=== PATIENT | female | born 1970 | race Caucasian/White ===

== ENCOUNTER → 2020-04-29 | Outpatient (CLI) | payer OTHER ==
[~2020-04-29] MED LIST: HYDROCODON-ACE1 EAC4 PO
[2020-04-29 15:46] LABS: BUN/CREATININE RATIO 14 (0-10)
== END ==
LOC: LAB 14:40
PROVIDERS: Colon & Rectal Surgery
DX: K60.1 Chronic anal fissure (principal)
CPT/HCPCS: 36415; 80048; 93005

== ENCOUNTER 2020-07-02 18:36 | Emergency (ER) | payer OTHER ==
[2020-07-02] MEDS ORDERED: HYDROCODON-ACE1 EAC4 PO (20:19)
== END 2020-07-02 20:34 | disposition home or self-care (01) ==
LOC: ER1 18:36
DX: S86.912A Strain of unspecified muscle(s) and tendon(s) at lower leg level, left leg, initial encounter (principal); X58.XXXA Exposure to other specified factors, initial encounter
CPT/HCPCS: 73564; 85379; 99283

== ENCOUNTER → 2020-10-04 | Outpatient (CLI) | payer OTHER ==
[2020-10-04 12:21] LABS: HEMOGLOBIN 14.1 gm/dl (12.3-15.3); RED BLOOD COUNT 4.56 M/UL (4.00-5.10); WHITE BLOOD COUNT 5.6 K/UL (4.5-11.0)
[2020-10-04 13:34] LABS: BUN/CREATININE RATIO 14 (0-10)
== END ==
LOC: LAB 11:50
PROVIDERS: Internal Medicine
DX: Z00.00 Encounter for general adult medical examination without abnormal findings (principal); E78.00 Pure hypercholesterolemia, unspecified; E03.9 Hypothyroidism, unspecified
CPT/HCPCS: 36415; 80048; 80061; 80076; 84439; 84443; 85025